=== PATIENT | female | born 1990 | race Caucasian/White ===

== ENCOUNTER 2019-01-23 17:37 | Observation (INO) | payer BC, OTHER ==
[~2019-01-23] VITALS: Ht 162.6 cm; Wt 68.1 kg
[2019-01-23 18:18] LABS: BASOPHILS ABSOLUTE AUTO 0.03 K/mm3 (0.00-0.23); BASOPHILS PERCENT AUTO 0 % (0-2); EOSINOPHILS ABSOLUTE AUTO 0.01 K/mm3 (0.00-0.68); EOSINOPHILS PERCENT AUTO 0 % (0-6); Hematocrit 38.5 % (33.0-51.0); Hemoglobin 13.7 g/dL (11.5-16.0); IMMATURE GRAN ABSOLUTE AUTO 0.11 K/mm3 (0.00-0.10); IMMATURE GRAN PERCENT AUTO 1 % (0-1); LYMPHOCYTES ABSOLUTE AUTO 1.09 K/mm3 (0.84-5.20); LYMPHOCYTES PERCENT AUTO 6 % (21-46); MONOCYTES PERCENT AUTO 9 % (4-13); Mean Corpuscular HGB 29.6 pg (26.0-34.0); Mean Corpuscular HGB Conc 35.6 g/dL (31.5-36.5); Mean Corpuscular Volume 83 fL (80-100); NEUTROPHILS PERCENT AUTO 84 % (41-73); Platelet Count 231 K/mm3 (150-400); RDW Coefficient Variation 12.9 % (11.7-14.2); RDW Standard Deviation 38.7 fL (35.1-46.3); Red Blood Cell Count 4.63 M/mm3 (3.80-5.20); White Blood Cell Count 17.24 K/mm3 (4.00-11.30)
[2019-01-23 18:35] LABS: Source, Urine Clean Catch
[2019-01-23 18:38] LABS: Bilirubin, Urine Neg (Neg); Blood, Urine Neg (Neg); Glucose Qualitative, Urine Neg (Neg); Ketones, Urine Neg (Neg); Leukocyte Esterase, Urine 1+ (Neg); Nitrite, Urine Neg (Neg); Protein, Urine Neg (Neg); Specific Gravity, Urine 1.005 (1.003-1.022); Urobilinogen, Urine NORM (Normal)
[2019-01-23 18:43] LABS: Alanine Aminotransfer (ALT/SGP 53 U/L (12-78); Albumin, Blood 3.1 g/dL (3.4-5.0); Albumin/Globulin Ratio 0.7 (0.8-1.8); Alk Phos 82 U/L (50-136); Anion Gap 7 mmol/L (6-16); Aspartate Aminotrans (AST/SGOT 37 U/L (12-37); Bilirubin, Total 0.4 mg/dL (0.1-1.0); Blood Urea Nitrogen 5 mg/dL (8-24); Bun/Creatinine Ratio 9.1 (12.0-20.0); CO2, Blood 24 mmol/L (21-32); Calcium, Blood 9.1 mg/dL (8.5-10.1); Chloride, Blood 102 mmol/L (98-108); Creatinine, Blood 0.55 mg/dL (0.40-1.00); Globulin, Blood 4.5 g/dL (2.2-4.0); Glomerular Filtration Rate >60 (60-); Glucose, Blood 106 mg/dL (70-99); Potassium, Blood 3.3 mmol/L (3.5-5.5); Sodium, Blood 133 mmol/L (136-145); Total Protein, Blood 7.6 g/dL (6.4-8.2)
[2019-01-23 18:56] LABS: Appearance, Urine Clear (Clear); Color, Urine Yellow (P-Yellow)
[2019-01-23 18:57] LABS: Bacteria Few /hpf; Red Blood Cells, Urine 0-2 /hpf (0-2); Squamous Epithelial Cells Few /hpf (Few)
--- NOTE | 2019-01-24 07:55 | NUR ---
PT REPORTS FEELS GOOD, EXCITED TO POSSIBLY GO HOME TODAY. WOULD LIKE TO KNOW IF ABLE TO WORK TOMORROW, IS A DENTAL HYGENIST.
[2019-01-24] MEDS ORDERED: NITR100CA PO (08:01)
--- NOTE | 2019-01-24 09:20 | NUR ---
DISCHARGE TEACHING DONE, PT VERBALIZES UNDERSTANDING, DENIES ANY QEUSTIONS, HAS NUMBER TO CALL [facility] OR [facility] WITH ANY QEUSTIONS
--- NOTE | 2019-01-24 09:23 | NUR ---
PT DC HOME AMBULATE OUT, HAS COPY OF DC INSTRUCTIONS IN HAND.
== END 2019-01-24 09:22 | disposition home or self-care (01) ==
LOC: OBS 17:37 → BC 18:03
PROVIDERS: ADMIT Nurse Practitioner Obstetrics & Gynecology
DX: O23.02 Infections of kidney in pregnancy, second trimester (principal); Z3A.18 18 weeks gestation of pregnancy; Z88.1 Allergy status to other antibiotic agents
CPT/HCPCS: 80053; 81001; 85025; 87086; 96361; 96365; A9270; G0378; J0696; J7120

== ENCOUNTER 2019-06-27 09:35 | Inpatient (IN) | payer BC ==
[~2019-06-27] VITALS: Ht 162.6 cm; Wt 84.0 kg
[~2019-06-27 09:35] MED LIST: NITR100CA PO
[2019-06-27 11:49] LABS: BASOPHILS ABSOLUTE AUTO 0.07 K/mm3 (0.00-0.23); BASOPHILS PERCENT AUTO 1 % (0-2); EOSINOPHILS ABSOLUTE AUTO 0.06 K/mm3 (0.00-0.68); EOSINOPHILS PERCENT AUTO 0 % (0-6); Hematocrit 41.2 % (33.0-51.0); Hemoglobin 13.9 g/dL (11.5-16.0); IMMATURE GRAN ABSOLUTE AUTO 0.12 K/mm3 (0.00-0.10); IMMATURE GRAN PERCENT AUTO 1 % (0-1); LYMPHOCYTES ABSOLUTE AUTO 2.16 K/mm3 (0.84-5.20); LYMPHOCYTES PERCENT AUTO 15 % (21-46); MONOCYTES ABSOLUTE AUTO 0.78 K/mm3 (0.16-1.47); MONOCYTES PERCENT AUTO 6 % (4-13); Mean Corpuscular HGB 29.1 pg (26.0-34.0); Mean Corpuscular HGB Conc 33.7 g/dL (31.5-36.5); Mean Corpuscular Volume 86 fL (80-100); Mean Platelet Volume 12.7 fL (9.1-12.4); NEUTROPHILS ABSOLUTE AUTO 11.12 K/mm3 (1.96-9.15); NEUTROPHILS PERCENT AUTO 78 % (41-73); Platelet Count 231 K/mm3 (150-400); RDW Coefficient Variation 13.7 % (11.7-14.2); RDW Standard Deviation 42.8 fL (35.1-46.3); Red Blood Cell Count 4.78 M/mm3 (3.80-5.20); White Blood Cell Count 14.31 K/mm3 (4.00-11.30)
[2019-06-27 12:35] LABS: Creatinine, Urine Random 38.1 mg/dL (27.00-270.00); Protein/Creat Ratio, Ur Random 0.2
[2019-06-27 12:59] LABS: Alanine Aminotransfer (ALT/SGP 22 U/L (12-78); Albumin, Blood 2.6 g/dL (3.4-5.0); Albumin/Globulin Ratio 0.6 (0.8-1.8); Alk Phos 130 U/L (50-136); Anion Gap 9 mmol/L (6-16); Aspartate Aminotrans (AST/SGOT 18 U/L (12-37); Bilirubin, Total 0.5 mg/dL (0.1-1.0); Blood Urea Nitrogen 10 mg/dL (8-24); Bun/Creatinine Ratio 14.7 (12.0-20.0); CO2, Blood 24 mmol/L (21-32); Chloride, Blood 105 mmol/L (98-108); Creatinine, Blood 0.68 mg/dL (0.40-1.00); Globulin, Blood 4.3 g/dL (2.2-4.0); Glomerular Filtration Rate >60 (60-); Glucose, Blood 76 mg/dL (70-99); Potassium, Blood 3.8 mmol/L (3.5-5.5); Sodium, Blood 138 mmol/L (136-145); Total Protein, Blood 6.9 g/dL (6.4-8.2)
[2019-06-28 18:20] LABS: PCO2 Cord - Venous 46.4 mmHg (40-50); PO2 Cord - Venous 17.3 mmHg (28-32); pH Umbilical Cord - Venous 7.33 (7.26-7.35)
[2019-06-28 18:23] LABS: PCO2 Cord - Arterial 74.7 mmHg (40-50); pH Cord - Arterial 7.11 (7.28-7.35)
[2019-06-28 18:24] LABS: PO2 Cord - Arterial < 13 mmHg (16-20)
--- NOTE | 2019-06-28 20:02 | NUR ---
PACU NOTE- @ 1899- FF, -1, SCANT @1919- FF, -1, SMALL @1939- FF, -1, SCANT @1954 FF,-1, SCANT
[2019-06-29 03:39] LABS: Hemoglobin 9.8 g/dL (11.5-16.0); Mean Corpuscular HGB 29.8 pg (26.0-34.0); Mean Corpuscular HGB Conc 33.8 g/dL (31.5-36.5); Mean Corpuscular Volume 88 fL (80-100); Mean Platelet Volume 12.8 fL (9.1-12.4); Platelet Count 179 K/mm3 (150-400); RDW Coefficient Variation 14.1 % (11.7-14.2); RDW Standard Deviation 44.8 fL (35.1-46.3); Red Blood Cell Count 3.29 M/mm3 (3.80-5.20)
[2019-06-29 04:13] LABS: BAND PERCENT MAN 22 % (0-8); BASOPHILS PERCENT MAN 0 % (0-2); EOSINOPHILS PERCENT MAN 0 % (0-6); LYMPHOCYTES ABSOLUTE MAN 0.74 K/mm3 (0.84-5.20); LYMPHOCYTES PERCENT MAN 3 % (21-46); MONOCYTES ABSOLUTE MAN 0.74 K/mm3 (0.16-1.47); MONOCYTES PERCENT MAN 3 % (4-13); NEUTROPHILS ABSOLUTE MAN 23.31 K/mm3 (1.96-9.15); SEG NEUTROPHILS PERCENT MAN 72 % (41-73); TOTAL CELLS COUNTED 100
[2019-06-30 03:28] LABS: BASOPHILS ABSOLUTE AUTO 0.03 K/mm3 (0.00-0.23); BASOPHILS PERCENT AUTO 0 % (0-2); EOSINOPHILS ABSOLUTE AUTO 0.08 K/mm3 (0.00-0.68); EOSINOPHILS PERCENT AUTO 1 % (0-6); Hematocrit 25.7 % (33.0-51.0); Hemoglobin 8.5 g/dL (11.5-16.0); IMMATURE GRAN ABSOLUTE AUTO 0.13 K/mm3 (0.00-0.10); IMMATURE GRAN PERCENT AUTO 1 % (0-1); LYMPHOCYTES ABSOLUTE AUTO 1.35 K/mm3 (0.84-5.20); LYMPHOCYTES PERCENT AUTO 8 % (21-46); MONOCYTES ABSOLUTE AUTO 0.99 K/mm3 (0.16-1.47); MONOCYTES PERCENT AUTO 6 % (4-13); Mean Corpuscular HGB 29.6 pg (26.0-34.0); Mean Corpuscular HGB Conc 33.1 g/dL (31.5-36.5); Mean Corpuscular Volume 90 fL (80-100); Mean Platelet Volume 12.2 fL (9.1-12.4); NEUTROPHILS ABSOLUTE AUTO 14.26 K/mm3 (1.96-9.15); NEUTROPHILS PERCENT AUTO 85 % (41-73); Platelet Count 164 K/mm3 (150-400); RDW Coefficient Variation 14.6 % (11.7-14.2); RDW Standard Deviation 47.7 fL (35.1-46.3); Red Blood Cell Count 2.87 M/mm3 (3.80-5.20); White Blood Cell Count 16.84 K/mm3 (4.00-11.30)
[2019-06-30] MEDS ORDERED: IBUP800 PO (21:53)
[2019-06-30] MEDS ORDERED: Percocet 5-3251 EACH PO (21:53)
[2019-06-30] MEDS ORDERED: DOCU100 PO (21:53)
--- NOTE | 2019-07-01 11:12 | NUR ---
07/01/19 1112 Yadira Frey VERIFICATIONS: EDIT CHART.
== END 2019-06-30 23:11 | disposition home or self-care (01) | DRG 786 ==
LOC: BC 09:35 → OBS 09:35 → BC 09:49
PROVIDERS: Advanced Practice Midwife; Obstetrics & Gynecology; ADMIT Nurse Practitioner Obstetrics & Gynecology
PROC: 3E0P7VZ Introduction of Hormone into Female Reproductive, Via Natural or Artificial Opening (ICD-10-PCS; 2019-06-27)
PROC: 10907ZC Drainage of Amniotic Fluid, Therapeutic from Products of Conception, Via Natural or Artificial Opening (ICD-10-PCS; 2019-06-28)
PROC: 3E033VJ Introduction of Other Hormone into Peripheral Vein, Percutaneous Approach (ICD-10-PCS; 2019-06-28)
PROC: 10H07YZ Insertion of Other Device into Products of Conception, Via Natural or Artificial Opening (ICD-10-PCS; 2019-06-28)
PROC: 10D00Z1 Extraction of Products of Conception, Low, Open Approach (ICD-10-PCS; principal; 2019-06-28 17:45)
DX: O48.0 Post-term pregnancy (principal); O41.1230 Chorioamnionitis, third trimester, not applicable or unspecified; O75.2 Pyrexia during labor, not elsewhere classified; O62.1 Secondary uterine inertia; Z3A.41 41 weeks gestation of pregnancy; Z37.0 Single live birth; O13.4 Gestational [pregnancy-induced] hypertension without significant proteinuria, complicating childbirth; O77.0 Labor and delivery complicated by meconium in amniotic fluid; O34.83 Maternal care for other abnormalities of pelvic organs, third trimester; N80.1 Endometriosis of ovary; O90.81 Anemia of the puerperium
CPT/HCPCS: 36415; 51702; 80053; 82570; 82803; 84156; 85025; 86850; 86900; 86901; 88307; 88312; J0290; J0690; J1200; J1885; J2001; J2405; J2590; J2765; J3010; J7120

== ENCOUNTER 2023-01-26 08:32 | Inpatient (IN) | payer OTHER ==
[~2023-01-26] VITALS: Ht 162.6 cm; Wt 82.0 kg
[2023-01-26] VITALS (20 sets, daily range): BP systolic 108–138; BP diastolic 63–96
[~2023-01-26 08:32] MED LIST changes: +DOCU100 PO; +IBUP800 PO; +Percocet 5-3251 EACH PO
[2023-01-26 09:46] LABS: BASOPHILS ABSOLUTE AUTO 0.05 K/mm3 (0.00-0.23); BASOPHILS PERCENT AUTO 0 % (0-2); EOSINOPHILS ABSOLUTE AUTO 0.06 K/mm3 (0.00-0.68); EOSINOPHILS PERCENT AUTO 1 % (0-6); Hematocrit 34.1 % (33.0-51.0); Hemoglobin 11.7 g/dL (11.5-16.0); IMMATURE GRAN ABSOLUTE AUTO 0.11 K/mm3 (0.00-0.10); IMMATURE GRAN PERCENT AUTO 1 % (0-1); LYMPHOCYTES PERCENT AUTO 14 % (21-46); MONOCYTES ABSOLUTE AUTO 0.76 K/mm3 (0.16-1.47); MONOCYTES PERCENT AUTO 6 % (4-13); Mean Corpuscular HGB 27.9 pg (26.0-34.0); Mean Corpuscular HGB Conc 34.3 g/dL (31.5-36.5); Mean Corpuscular Volume 81 fL (80-100); Mean Platelet Volume 11.1 fL (9.1-12.4); NEUTROPHILS PERCENT AUTO 78 % (41-73); Platelet Count 213 K/mm3 (150-400); RDW Coefficient Variation 12.9 % (11.7-14.2); RDW Standard Deviation 37.8 fL (35.1-46.3); Red Blood Cell Count 4.19 M/mm3 (3.80-5.20); White Blood Cell Count 12.48 K/mm3 (4.00-11.30)
--- NOTE | 2023-01-26 11:36 | NUR ---
01/26/23 1136 Marilynn Marin VIABLE FEMALE BORN AT 1117 APGARS 9/9. WEIGHT 7-0 ([id number]). CORD BLOOD GIVEN TO PAMELA LARKIN. CORD GASES ON ICE AND GIVEN TO MARY GRACE HILL. SALPINGECTOMY DONE AND FALLOPIAN TUBES TAKEN TO PATHOLOGY.
[2023-01-26 11:41] LABS: PCO2 Cord - Arterial 54.7 mmHg (40-50); PO2 Cord - Arterial 18.6 mmHg (16-20); pH Cord - Arterial 7.32 (7.28-7.35)
[2023-01-26 11:43] LABS: PCO2 Cord - Venous 42.5 mmHg (40-50); PO2 Cord - Venous 32.2 mmHg (28-32); pH Umbilical Cord - Venous 7.39 (7.26-7.35)
--- NOTE | 2023-01-26 15:30 | NUR ---
REPORT TO PRINCE NASH RN
[2023-01-27 00:21] VITALS: BP 124/81
--- NOTE | 2023-01-27 04:00 | NUR ---
ASSUMED CARE AT 0320
[2023-01-27 05:19] VITALS: BP 124/77
[2023-01-27 08:05] LABS: BASOPHILS ABSOLUTE AUTO 0.04 K/mm3 (0.00-0.23); BASOPHILS PERCENT AUTO 0 % (0-2); EOSINOPHILS ABSOLUTE AUTO 0.06 K/mm3 (0.00-0.68); EOSINOPHILS PERCENT AUTO 0 % (0-6); Hematocrit 30.7 % (33.0-51.0); Hemoglobin 10.5 g/dL (11.5-16.0); IMMATURE GRAN ABSOLUTE AUTO 0.09 K/mm3 (0.00-0.10); IMMATURE GRAN PERCENT AUTO 1 % (0-1); LYMPHOCYTES ABSOLUTE AUTO 1.79 K/mm3 (0.84-5.20); LYMPHOCYTES PERCENT AUTO 13 % (21-46); MONOCYTES ABSOLUTE AUTO 0.99 K/mm3 (0.16-1.47); MONOCYTES PERCENT AUTO 7 % (4-13); Mean Corpuscular HGB 28.1 pg (26.0-34.0); Mean Corpuscular HGB Conc 34.2 g/dL (31.5-36.5); Mean Corpuscular Volume 82 fL (80-100); Mean Platelet Volume 11.6 fL (9.1-12.4); NEUTROPHILS ABSOLUTE AUTO 11.07 K/mm3 (1.96-9.15); NEUTROPHILS PERCENT AUTO 79 % (41-73); Platelet Count 219 K/mm3 (150-400); RDW Coefficient Variation 13.1 % (11.7-14.2); RDW Standard Deviation 38.9 fL (35.1-46.3); Red Blood Cell Count 3.74 M/mm3 (3.80-5.20); White Blood Cell Count 14.04 K/mm3 (4.00-11.30)
[2023-01-27 08:37] VITALS: BP 119/74
[2023-01-27 11:38] VITALS: BP 124/69
[2023-01-27 16:00] VITALS: BP 120/87
[2023-01-27 20:23] VITALS: BP 129/75
--- NOTE | 2023-01-27 22:58 | NUR ---
pt requested meds for pain. Nurse notified.
[2023-01-28 01:29] VITALS: BP 135/76
[2023-01-28 05:25] VITALS: BP 122/64
[2023-01-28 07:59] VITALS: BP 129/82
== END 2023-01-28 12:16 | disposition home or self-care (01) | DRG 785 ==
LOC: BC 08:32
PROVIDERS: ADMIT Obstetrics & Gynecology
PROC: 10D00Z1 Extraction of Products of Conception, Low, Open Approach (ICD-10-PCS; principal; 2023-01-26 10:30)
PROC: 0UB70ZZ Excision of Bilateral Fallopian Tubes, Open Approach (ICD-10-PCS; 2023-01-26 10:30)
DX: O34.211 Maternal care for low transverse scar from previous cesarean delivery (principal); Z37.0 Single live birth; Z3A.39 39 weeks gestation of pregnancy; Z90.89 Acquired absence of other organs; Z79.899 Other long term (current) drug therapy; Z87.442 Personal history of urinary calculi; Z88.1 Allergy status to other antibiotic agents; Z30.2 Encounter for sterilization
CPT/HCPCS: 36415; 82803; 85025; 86850; 86900; 86901; 88302; A9270; J0690; J1885; J2590; J2765; J3010; J7120